=== PATIENT | male | born 1955 | race Caucasian/White ===

== ENCOUNTER → 2017-06-06 | Outpatient (CLI) | payer BC | END | disposition home or self-care (01) | LOC: GMAB 11:15 | PROVIDERS: ATTEND Family Medicine | DX: Z00.01 Encounter for general adult medical examination with abnormal findings (principal) ==

== ENCOUNTER → 2018-06-11 | Outpatient (CLI) | payer BC | LOC: GMAE 14:54 | PROVIDERS: ATTEND Family Medicine | DX: Z00.01 Encounter for general adult medical examination with abnormal findings (principal); Z11.59 Encounter for screening for other viral diseases ==

== ENCOUNTER → 2018-07-09 | Outpatient (CLI) | payer BC ==
--- NOTE | 2018-07-09 12:07 | US ---
EXAM DESCRIPTION: Aorta: Ultrasound. CLINICAL HISTORY: SCREENING FOR OTHER SPECIFIED CONDITIONS COMPARISON: None. TECHNIQUE: Transcutaneous scanning: Two-dimensional and Doppler modes. FINDINGS: Abdominal aorta diameter (cm) Proximal: 2.4 x 2.3. Mid: 2.0 x 1.6. Distal: 2.0 x 1.9. Common Iliac diameter (mm) Right: 10 x 8. Left: 9 x 8. Other: Minimal atherosclerotic changes in the intima.. IMPRESSION: No abdominal aortic aneurysm. No significant stenosis. Electronically signed by: Miguelangel Baker MD 07/09/2018 12:05 PM [facility]
== END ==
LOC: US 09:00
PROVIDERS: ATTEND Family Medicine
DX: Z13.89 Encounter for screening for other disorder (principal)

== ENCOUNTER → 2019-07-01 | Outpatient (CLI) | payer BC | END | disposition home or self-care (01) | LOC: GMAE 10:35 | PROVIDERS: ATTEND Family Medicine | DX: Z00.00 Encounter for general adult medical examination without abnormal findings (principal) ==

== ENCOUNTER → 2020-07-05 | Outpatient (CLI) | payer BC | LOC: GMAE 10:25 | PROVIDERS: ATTEND Family Medicine | DX: Z12.5 Encounter for screening for malignant neoplasm of prostate (principal); I10 Essential (primary) hypertension; E11.9 Type 2 diabetes mellitus without complications; E78.5 Hyperlipidemia, unspecified ==